=== PATIENT | female | born 1950 | race Caucasian/White ===

== ENCOUNTER 2018-09-07 13:49 | Emergency (ER) | payer MEDICARE, OTHER ==
[~2018-09-07] VITALS: Ht 154.9 cm; Wt 45.4 kg
[~2018-09-07 13:49] MED LIST: ALENDRONATE SOD10 MG PO; DIPHENHIST50 MG PO; ESTRADIOL 1 MG T1 M1 PO; HALOG30 GM TP; PEPCID40 MG PO; PREDNISONE 20 M20 M1 PO; PREDNISONE50 MG PO
[2018-09-07] MEDS ORDERED: ALENDRONATE SOD70 MG PO (14:07)
[2018-09-07] MEDS ORDERED: ZYRTEC10 M5 PO (14:08)
[2018-09-07 14:24] LABS: ABSOLUTE BASOPHILS 0.1 thou/uL (0.0-0.2); ABSOLUTE EOSINOPHILS 0.1 thou/uL (0.0-0.7); ABSOLUTE LYMPHOCYTES 2.5 thou/uL (0.8-5.3); ABSOLUTE MONOCYTES 0.7 thou/uL (0.0-1.2); ABSOLUTE NEUTROPHILS 6.9 thou/uL (1.6-8.1); BASOPHILS 0.5 %; EOSINOPHILS 0.7 %; HEMATOCRIT 45.2 % (37.0-47.0); HEMOGLOBIN 14.8 gm/dL (12.0-15.0); LYMPHOCYTES 24.9 %; MCH 31.3 pg (26.0-34.0); MCHC 32.6 g/dL (28.0-37.0); MCV 95.9 fL (80.0-100.0); MONOCYTES 6.5 %; MPV 7.3 fl. (7.2-11.1); NUCLEATED RBCS 0 /100WBC; PLATELET COUNT* 328 thou/uL (150-400); POLYS 67.4 %; RBC 4.72 mil/uL (4.20-5.00); RDW-CV 13.7 % (10.5-14.5); WBC 10.2 thou/uL (4.0-11.0)
[2018-09-07 14:31] LABS: ANION GAP 13 mmol/L (7-16); BUN 13 mg/dL (7-18); CALCIUM 9.8 mg/dL (8.5-10.1); CHLORIDE 103 mmol/L (98-107); CO2 25 mmol/L (21-32); CREATININE 0.9 mg/dL (0.6-1.3); GLUCOSE 96 mg/dL (70-99); POTASSIUM 3.9 mmol/L (3.5-5.1); SODIUM 141 mmol/L (136-145)
[2018-09-07 14:41] LABS: ALBUMIN 4.3 g/dL (3.4-5.0); ALKALINE PHOSPHATASE 68 U/L (46-116); SGOT 22 U/L (15-37); SGPT 21 U/L (30-65); TOTAL BILIRUBIN 0.8 mg/dL (<0.1-1.0); TROPONIN-I LEVEL <0.06 ng/mL (<0.06)
[2018-09-07 15:18] VITALS: BP 113/62
--- NOTE | 2018-09-07 17:35 | EKG ---
[place] [address] ELECTROCARDIOGRAM REPORT Name: REMY BEAN Room: [facility]#: [id number] Admission: 09/07/18 Attend Phys: Discharge: 09/07/18 Date of : 46 Report #: [id number] THIS REPORT FOR: //name// [facility] ED Test Date: 2018-09-07 Test Time: 13:57:29 Pat Name: REMY SHANKSMENDOZAANNIE Department: Room: Gender: F Progressive Care Unit Registered Nurse: Amrit KUMARI : 1950 Requested By: Matthew Umaña Order Number: [id number] MD: Cristi Pastor Measurements Intervals Elizabeth Rate: 62 P: 72 DC: 154 QRS: 89 QRSD: 98 T: 14 QT: 397 QTc: 404 Interpretive Statements Sinus rhythm No previous ECG available for comparison Electronically Signed On 09-07-2018 17:35:09 MANAGER HAIR by Cristi Pastor [email or web address] <ELECTRONICALLY SIGNED> By: Cristi Pastor MD, [facility] 09/07/18 1735 1357 1357 Cristi Pastor MD, FACC /EPI
== END 2018-09-07 15:18 | disposition home or self-care (01) ==
LOC: M.ERS 13:49
PROVIDERS: Emergency Medicine Emergency Medical Services
DX: R11.2 Nausea with vomiting, unspecified (principal); R19.7 Diarrhea, unspecified; R42 Dizziness and giddiness; R55 Syncope and collapse; Z88.0 Allergy status to penicillin

== ENCOUNTER 2018-09-24 08:24 | Inpatient (IN) | payer MEDICARE, OTHER ==
[~2018-09-24] VITALS: Ht 154.9 cm; Wt 47.6 kg
[~2018-09-24 08:24] MED LIST changes: +ALENDRONATE SOD70 MG PO; +ZYRTEC10 M5 PO
[2018-09-24 08:26] VITALS: BP 184/90
[2018-09-24] MEDS ORDERED: FOSAMAX 70 MG T70 MG PO (08:28)
[2018-09-24 08:40] LABS: HEMATOCRIT 45.4 % (37.0-47.0); HEMOGLOBIN 14.9 gm/dL (12.0-15.0); MCH 31.6 pg (26.0-34.0); MCHC 32.9 g/dL (28.0-37.0); MPV 7.5 fl. (7.2-11.1); RBC 4.73 mil/uL (4.20-5.00); RDW-CV 13.7 % (10.5-14.5); WBC 7.1 thou/uL (4.0-11.0)
[2018-09-24 08:43] LABS: POC CA IONIZED 4.7 mg/dL (4.5-5.3); POC POTASSIUM 4.4 mmol/L (3.5-4.9)
[2018-09-24 08:50] LABS: CALCIUM 9.2 mg/dL (8.5-10.1); CREATININE 0.9 mg/dL (0.6-1.3); POTASSIUM 4.4 mmol/L (3.5-5.1)
[2018-09-24 08:52] LABS: APTT 24.9 Seconds (25.0-31.3)
[2018-09-24 09:00] LABS: ALBUMIN 4.1 g/dL (3.4-5.0); TOTAL BILIRUBIN 0.3 mg/dL (<0.1-1.0); TOTAL PROTEIN 7.7 g/dL (6.4-8.2)
[2018-09-24 09:44] LABS: NT-PRO BRAIN NAT PEPTIDE 305 pg/mL (<300); TROPONIN-I LEVEL <0.06 ng/mL (<0.06)
[2018-09-24 10:10] LABS: URINE BILIRUBIN NEGATIVE (Negative); URINE BLOOD TRACE (Negative); URINE CLARITY CLEAR; URINE COLOR YELLOW; URINE GLUCOSE-RANDOM NEGATIVE (Negative); URINE KETONES NEGATIVE (Negative); URINE LEUKOCYTES TRACE (Negative); URINE NITRITE NEGATIVE (Negative); URINE PROTEIN NEGATIVE (Negative); URINE SPECIFIC GRAVITY <= 1.005 (1.005-1.030); URINE UROBILINOGEN 0.2 E.U./dl (0.2-1.0)
[2018-09-24 10:22] LABS: BACTERIA 1-9 Few /HPF (None Seen); CASTS None Seen /LPF (None Seen); CRYSTALS None Seen /LPF (None Seen); MUCUS 0-3 Light strn/LPF (None Seen); SQUAMOUS 0-3 Few /LPF (0-3); URINE RBC 0-2 Rare /HPF (0-2); URINE WBC 0-5 Rare /HPF (0-5)
[2018-09-24 11:04] VITALS: BP 134/65
[2018-09-24 11:24] VITALS: BP 155/74
[2018-09-24] MEDS ORDERED: TENORMIN50 MG PO (11:54)
[2018-09-24 15:13] LABS: CHOLESTEROL 203 mg/dL (<200); HDL CHOLESTEROL 62 mg/dL (>40); LDL CHOLESTEROL 108 mg/dL (<100); SERUM ASSESSMENT Clear; TC:HDL 3.3 Ratio (Not establshd); TRIGLYCERIDE 165 mg/dL (<150); VLDL 33 mg/dL (<40)
[2018-09-24 19:00] VITALS: BP 133/52
[2018-09-25] VITALS (7 sets, daily range): BP systolic 114–138; BP diastolic 50–70
[2018-09-25] MEDS ORDERED: ASPIRIN325 PO (10:15)
[2018-09-25] MEDS ORDERED: ATORVASTATIN CA40 MG PO (10:16)
--- NOTE | 2018-09-25 10:16 | EKG ---
[place] [address] ELECTROCARDIOGRAM REPORT Name: REMY BEAN Room: [address] ADM IN .R.#: [id number] Admission: 09/24/18 Attend Phys: Skyler Cohen Discharge: Date of : 46 Report #: [id number] THIS REPORT FOR: //name// [facility] ED Test Date: 2018-09-24 Test Time: 08:51:41 Pat Name: REMY BEAN Department: Room: [facility] Gender: F Blue Split Trimmer: Amrit KUMARI : 1950 Requested By: Harvey Phelps Order Number: [id number] MD: Vinicius Johns Measurements Intervals [place] Rate: 53 P: 72 UT: 153 QRS: 89 QRSD: 98 T: 49 QT: 411 QTc: 386 Interpretive Statements Sinus bradycardia Consider right ventricular hypertrophy ST elevation, consider early repolarization Compared to ECG 09/07/2018 13:57:29 rate slowed Electronically Signed On 09-25-2018 10:16:20 PIPE CHIPPER by Vinicius Johns [email or web address] <ELECTRONICALLY SIGNED> By: Vinicius Johns MD, [facility] 09/25/18 [phone] Vinicius Johns MD, [facility] /EPI
--- NOTE | 2018-09-25 15:04 | 2DMMODE ---
[place] [address] 2 D/M-MODE ECHOCARDIOGRAM Name: REMY BEAN Room: [address] IN .R.#: [id number] Admission: 09/24/18 Attend Phys: Janis Mills Discharge: Date of : 46 Date of Service: 09/25/18 1504 Report #: [id number] THIS REPORT FOR: //name// APPROVED REPORT Study performed: 09/25/2018 10:13:08 EXAM: Comprehensive 2D, Doppler, and color-flow Echocardiogram Patient Location: Bedside BSA: 1.41 HR: 64 bpm BP: 117/50 mmHg Other Information Study Quality: Technically Limited Indications CVA/TIA Echo Enhancing Agent Indication: Rule out Shunt Agent(s) / Amount(s) Used: Agitated Saline cc 2D Dimensions IVSd: 8.49 (7-11mm) LVOT Diam: 17.41 (18-24mm) LVDd: 32.65 mm PWd: 9.92 (7-11mm) Ascending Ao: 23.45 (22-36mm) LVDs: 25.54 (25-40mm) Aortic Root: 20.99 mm Volumes Left Atrial Volume (Systole) LA ESV Index: 23.80 mL/m2 Aortic Valve AoV Peak Amado.: 1.15 m/s AO Peak Gr.: 5.28 mmHg LVOT Max P.57 mmHg AO Mean Gr.: 3.11 mmHg LVOT Mean P.20 mmHg LVOT Max V: 0.80 m/s AO V2 VTI: 24.42 cm LVOT Mean V: 0.50 m/s TAWNYA (VTI): 1.71 cm2 LVOT V1 VTI: 17.56 cm Mitral Valve E/A Ratio: 1.15 [place] [address] 2 D/M-MODE ECHOCARDIOGRAM Name: REMY BEAN Room: [address] IN .R.#: [id number] Admission: 09/24/18 Attend Phys: Janis Mills Discharge: Date of : 46 Date of Service: 09/25/18 1504 Report #: [id number] MV Decel. Time: 184.40 ms MV E Max Amado.: 0.78 m/s MV PHT: 53.48 ms MVA (PHT): 4.11 cm2 TDI E/Lateral E': 7.80 E/Medial E': 7.80 Medial E' Amado.: 0.10 m/s Lateral E' Amado.: 0.10 m/s Pulmonary Valve PV Peak Amado.: 1.01 m/s PV Peak Gr.: 4.06 mmHg Tricuspid Valve RAP Estimate: 5.00 mmHg TR Peak Gr.: 27.88 mmHg RVSP: 32.88 mmHg PA Pressure: 32.88 mmHg Left Ventricle The left ventricle is normal size. There is normal LV segmental wall motion. There is normal left ventricular wall thickness. Left ventricular systolic function is normal. The left ventricular ejection fraction is within the normal range. LVEF is 60-65%. The left ventricular diastolic function is normal. Right Ventricle The right ventricle is normal size. The right ventricular systolic function is normal. Atria The left atrium size is normal. Injection of bubbles documented no interatrial shunt. The right atrium size is normal. Aortic Valve The aortic valve is normal in structure. No aortic regurgitation is present. There is no aortic valvular stenosis. Mitral Valve The mitral valve is normal in structure. There is no mitral valve regurgitation noted. No evidence of mitral valve stenosis. Tricuspid Valve The tricuspid valve is normal in structure. Trace tricuspid regurgitation[place] [address] 2 D/M-MODE ECHOCARDIOGRAM Name: VIKASREMY Skyler Room: [address] IN ..#: [id number] Admission: 09/24/18 Attend Phys: Janis Mills Discharge: Date of : 46 Date of Service: 09/25/18 1504 Report #: [id number] Pulmonic valve is not well visualized. There is no pulmonic valvular regurgitation. Great Vessels The aortic root is normal in size. IVC is normal in size and collapses >50% with inspiration. Pericardium There is no pericardial effusion. <Conclusion> LVEF is 60-65%. Injection of bubbles documented no interatrial shunt. <ELECTRONICALLY SIGNED> By: Vinicius Johns MD, FACC 09/25/18 1504 1504 1504 Vinicius Johns MD, FACC /INF
[2018-09-26] VITALS: BP 132/61
[2018-09-26 04:00] VITALS: BP 118/57
[2018-09-26 08:00] VITALS: BP 113/55
[2018-09-26 09:10] LABS: GLYCOHEMOGLOBIN (HGB A1C) 5.6 % (4.8-5.6)
[2018-09-26 12:00] VITALS: BP 120/56
[2018-09-26 16:38] VITALS: BP 117/57
--- NOTE | 2018-09-26 17:36 | CON ---
[address] [address] CONSULTATION Name: REMY BEAN Room: [address] IN .R.#: [id number] Admission: 09/24/18 Attend Phys: Skyler Cohen Discharge: Date of : 46 Report #: [id number] THIS REPORT FOR: //name// CC: Julian Salazar INDICATION: CVA and surgical clearance. HISTORY OF PRESENT ILLNESS: The patient is a very pleasant 68-year-old white female with no prior cardiac history. She was admitted to the hospital with symptoms of right-sided CVA. CTA of the head and neck shows evidence of small thrombus in the right common carotid artery. The patient is tentatively scheduled for surgery tomorrow. Her symptoms have resolved. She denies any chest pain, tightness or pressure. There is no prior cardiac history. She denies any significant orthopnea or paroxysmal nocturnal dyspnea. Cardiac risk factors include tobacco use, hypertension and possible dyslipidemia. FAMILY HISTORY: Noncontributory. SOCIAL HISTORY: The patient smokes a pack and half cigarettes every week. She drinks alcohol occasionally. PAST MEDICAL HISTORY: 1. Osteoporosis. 2. Hypertension. 3. Hormone replacement therapy. 4. Tobacco use. PAST SURGICAL HISTORY: Partial hysterectomy and rotator cuff repair. PHYSICAL EXAMINATION: VITAL SIGNS: Stable. Blood pressure 120/56, pulse 65 and regular. GENERAL: This is a pleasant, thin female in no distress. Mood and affect appropriate. HEENT: The patient is wearing glasses. Extraocular muscles intact. Mucous membranes moist. NECK: Shows no jugular venous distention. CHEST: Reveals clear lung ramos without wheezes or rales. CARDIOVASCULAR: Reveals a regular rhythm, normal S1, S2. I do not appreciate gallop or murmur. ABDOMEN: Reveals normal bowel sounds. Abdomen is soft and nontender. EXTREMITIES: Shows no edema. Peripheral pulses 2+ and easily palpable. A 12-lead EKG shows sinus bradycardia without [place] [address] CONSULTATION Name: REMY BEAN Room: [address] IN [facility].#: [id number] Admission: 09/24/18 Attend Phys: Skyler Cohen Discharge: Date of : 46 Report #: [id number] abnormality. There are no pathologic Q-waves. All intervals are normal. LABORATORY DATA: Reviewed. Electrolytes within normal limits. Renal function is normal. Troponins less than 0.06. Total cholesterol 203, triglycerides 165, HDL 62, LDL 108. IMPRESSION AND RECOMMENDATIONS: 1. Symptoms to suggest cerebrovascular accident. The patient has right common carotid thrombus. There is no cardiac contraindication for proceeding with carotid endarterectomy at this time. 2. Borderline hyperlipidemia. I would recommend low dose statin agent at discharge. 3. Hypertension, adequately controlled on atenolol. 4. Tobacco use, smoking cessation discussed and advised. <ELECTRONICALLY SIGNED> By: Cristi Pastor MD, FACC 09/26/18 1736 1320 1348Michael Georgina Pastor MD, FACC /nt
[2018-09-26 20:00] VITALS: BP 136/70
[2018-09-27] VITALS (9 sets, daily range): BP systolic 97–149; BP diastolic 39–66
[2018-09-27 18:31] LABS: HEMATOCRIT 37.8 % (37.0-47.0); HEMOGLOBIN 12.4 gm/dL (12.0-15.0); MCH 31.5 pg (26.0-34.0); MCHC 32.9 g/dL (28.0-37.0); MCV 95.7 fL (80.0-100.0); MPV 7.8 fl. (7.2-11.1); RBC 3.95 mil/uL (4.20-5.00); RDW-CV 13.7 % (10.5-14.5); WBC 10.3 thou/uL (4.0-11.0)
[2018-09-27 18:35] LABS: POTASSIUM 3.8 mmol/L (3.5-5.1)
[2018-09-28] VITALS: BP 108/47
[2018-09-28 01:00] VITALS: BP 102/50
[2018-09-28 02:00] VITALS: BP 108/61
[2018-09-28 04:00] VITALS: BP 100/47
[2018-09-28 06:00] VITALS: BP 123/71
[2018-09-28] MEDS ORDERED: ASPIRIN325 PO (07:51)
[2018-09-28] MEDS ORDERED: ASPIR 8181 M1 PO (11:08)
[2018-09-28] MEDS ORDERED: NORCO 5-325 TA1 EACH PO (11:10)
[2018-09-28] MEDS ORDERED: ATORVASTATIN CA40 MG PO (11:12)
[2018-09-28 11:13] VITALS: BP 117/50
--- NOTE | 2018-09-29 10:58 | CON ---
[address] [address] CONSULTATION Name: REMY BEAN Room: [address] IN M.R.#: [id number] Admission: 09/24/18 Attend Phys: Skyler Cohen Discharge: 09/28/18 Date of : 46 Report #: [id number] THIS REPORT FOR: //name// CC: Julian Mills DATE OF SERVICE: 09/24/2018 HISTORY OF PRESENT ILLNESS: This is a 68-year-old female patient who was evaluated by me for TIA. The patient was discussed with the Emergency Room physician. The patient herself provided history. She noticed weakness on the left side of the body when she got up this morning. She also had some speech difficulty. Some slurring of the speech was associated with that. Weakness was moderately severe. Symptoms came spontaneously, then resolved spontaneously. In the Emergency Room, her symptoms completely resolved. She underwent a CTA of the head and neck, which demonstrated the possibility of dissection. It appeared to be small. As I understand from the Emergency Room, they contacted the stroke team and they mainly recommended aspirin therapy. REVIEW OF SYSTEMS: Indicate that the patient does have a history of hypertension. She takes medication for that. When she came in, her blood pressure was high at 184/90. She is not a known diabetic. She did have some stomach problems 2 weeks ago, but it was overnight nausea and vomiting. She denies any new eye, ENT, cardiac, respiratory, GI, , musculoskeletal, constitutional, dermatological, hematological, psychiatric, throat, allergic symptom associated with present symptomatology. PAST MEDICAL HISTORY: Negative for any TIA or migraine headache. FAMILY HISTORY: Negative for any early age stroke. SOCIAL HISTORY: She smokes. PHYSICAL EXAMINATION: Indicate she is an alert and responsive. She has no speech difficulty. Her speech, concentration, fund of knowledge and memory is at her baseline. She is oriented. Cranial nerve examination 2-12 looks unremarkable. She has symmetrical strength, sensation, reflexes and tones in all 4 extremities. There is no papilledema. There is no carotid bruit. There is no meningeal sign. Pulses are difficult to feel, but she has no edema, cyanosis or jaundice. Cardiac examination shows no atrial fibrillation and was mostly unremarkable. No respiratory difficulty or rhonchi was noticed. She is moderately built individual who does not have any dysmorphic features of eyes, ears and face. Her blood pressure is 155/74, respirations 16, pulse is 58, temperature is 97.8. LABORATORY DATA: Indicate a normal white count at 7.1. [place] [address] CONSULTATION Name: REMY BEAN Room: [address] IN M.R.#: [id number] Admission: 09/24/18 Attend Phys: Skyler Cohen Discharge: 09/28/18 Date of : 46 Report #: [id number] significant dyslipidemia with cholesterol of 203 and LDL of 108. Her imaging studies were reviewed. The CT angio is as described above. MRI does show a small infarct which would correlate with the patient's symptoms. Carotid Doppler actually shows more block on the left side than the right side. IMPRESSION: 1. Small cerebrovascular accident on MRI with the symptoms so far have resolved. 2. Smoking is the biggest risk factor. 3. Dyslipidemia is another risk factor in her. RECOMMENDATIONS: 1. Monitor for any atrial fibrillation. 2. Aspirin. 3. She must stop smoking. 4. Statin. 5. Thirty days event monitor as an outpatient. 6. Await echocardiogram to see if there is any patent foramen ovale. Dr. Beckett will follow up this patient from tomorrow and we can see this patient back for a followup in about 1 week after she is dismissed and do rest of the workup as an outpatient. All of it was discussed with the patient and the patient is agreeable with this plan. <ELECTRONICALLY SIGNED> By: Alfred Madison MD 09/29/18 1058 1600 [id number] Madison MD /nt
--- NOTE | 2018-09-29 14:54 | OP ---
[address] [address] OPERATIVE REPORT Name: REMY BEAN Room: [address] IN ..#: [id number] Admission: 09/24/18 Attend Phys: Skyler Cohen Discharge: 09/28/18 Date of : 46 Report #: [id number] THIS REPORT FOR: //name// CC: Julian Mills DATE OF SERVICE: 09/27/2018 PREOPERATIVE DIAGNOSIS: Symptomatic right carotid artery stenosis. POSTOPERATIVE DIAGNOSIS: Symptomatic right carotid artery stenosis. OPERATION: 1. Right carotid endarterectomy with bovine pericardial patch angioplasty. 2. Completion intraoperative duplex. SURGEON: Rajeev Gentile DO. RIDDLER OPERATOR: MARISELA Cruz. ANESTHESIA: General. ESTIMATED BLOOD LOSS: 150 mL. FLUIDS: 1100 crystalloid. URINE OUTPUT: None. SPECIMENS: Right carotid plaque. IMPLANTS: A 0.8 x 8 bovine pericardial patch in the right carotid artery. FINDINGS: She has an ulcerated common carotid artery plaque that appeared to have ruptured. This endarterectomized well and tailored to good distal endpoint on the internal carotid artery. Completion intraoperative duplex demonstrated no intraluminal defects, a good continuous diastolic flow through the internal carotid artery and flow in the external carotid artery. CLINICAL HISTORY: The patient is a 68-year-old woman presented with a transient ischemic attack with a left upper extremity weakness, facial drooping and dysarthria. This resolved within about a half hour to hour. Imaging during hospital admission demonstrated a right carotid artery plaque that appeared to have ruptured with a thrombus present. She was initiated on heparin drip and then brought to the OR for endarterectomy. DESCRIPTION OF PROCEDURE: After informed consent was obtained, the patient was [facility] [address] [place] [address] OPERATIVE REPORT Name: REMY BEAN Room: [address] IN [facility].#: [id number] Admission: 09/24/18 Attend Phys: Skyler Cohen Discharge: 09/28/18 Date of : 46 Report #: [id number] taken to the operating room and placed on the OR bed in supine position. She was administered general anesthesia by the anesthesia team. Right neck was prepped and draped in usual sterile fashion. Full timeout was performed identifying correct patient and procedure. Next, a longitudinal incision made along the anterior border of sternocleidomastoid. Dissection was carried down through skin and subcutaneous tissue both sharply with electrocautery. Platysma was divided. The carotid sheath was entered. Facial vein was identified, was ligated between 2-0 silk ties and divided. I then circumferentially dissected out the common carotid artery and controlled this with umbilical tape and Rumel tourniquet. I then dissected out the external carotid artery and superior thyroid artery and controlled this with a Silastic vessel loop in Rosario fashion. I then dissected out the distal internal carotid artery and controlled with Silastic vessel loop as well. I administered 5000 units of intravenous heparin. She has been on therapeutic heparin drip preoperatively and this was stopped in the preop area. Then, after 3 minutes, sequentially clamped the internal followed by the common external carotid artery, I made a longitudinal arteriotomy extended with Rosario scissors in the normal common carotid artery and internal carotid artery. I then placed a 12-[place] shunt in standard fashion. Doppler interrogation confirmed flow through the shunt and then performed a standard endarterectomy with eversion endarterectomy of the external carotid artery, tailored to good distal endpoint in the distal internal carotid artery. I then performed patch angioplasty with bovine pericardial patch with running 6-0 Prolene suture. Prior to completion of the suture line, the shunt was removed. The arteries were sequentially reclamped and the arteries were allowed to fore and backbleed. It was flushed with heparinized saline. I completed the patch, restored flow first up the external carotid artery and after several heartbeats to the internal carotid artery. I then performed completion intraoperative duplex demonstrated no intraluminal defects, good flow through the external, continuous diastolic flow through the internal carotid artery. At this point, the partially reversed the heparin with 50 mg protamine. Once hemostasis was assured, the wound was irrigated with antibiotic solution and closed in layers with 2-0 and 3-0 Vicryl, 4-0 Monocryl on the skin. Dermabond was applied. Skin and subcutaneous tissues were anesthetized with Marcaine anesthetic. All sponge, sharp and instrument counts reported correct x 2. She was extubated in the operating room, neurologically intact, moving upper and lower extremities appropriately to command. <ELECTRONICALLY SIGNED> By: Andre Cruz DO 09/29/18 1454 1703 1738Alakshmi Gentile DO /nt
--- NOTE | 2018-09-29 16:07 | PATH ---
[address] [address] PATHOLOGY RPT PROCEDURE Name: REMY ESTEBAN Room: [address] IN .R.#: [id number] Admission: 09/24/18 Date of : 46 Discharge: 09/28/18 Report #: [id number] Path Case #: [id number] [facility] Accession Number: [id number] . 01 Material submitted: . PLAQUE RIGHT CAROTID . 01 Clinical history: . Symptomatic right carotid stenosis. . 02 Diagnosis: Plaque right carotid: - Fibrointimal atherosclerotic plaque with calcification. . (FAITH:mmnarinder; 09/29/18) QL/09/29/2018 . 02 Electronically signed: . Raz Nunes MD, Pathologist NPI- [id number] . 01 Gross description: . Received in formalin labeled "Remy Esteban, plaque right carotid" is a 3.6 x 2.4 x 0.6 cm aggregate of aguirre-yellow rubbery soft tissue fragments. The specimen is sectioned to reveal focal areas of calcification comprising 5% of the specimen. Bag Grader sections are submitted in cassette A1. ([facility]; 09/28/2018) SYC/SYC . 02 Pathologist provided ICD-10: I65.21 . 02 CPT . 865999, 481041 Specimen Comment: A courtesy copy of this report has been sent to Specimen Comment: [phone], , . Specimen Comment: Report sent to ,DR LOCKETT / DR SCHMIDT Performed at: [address], [place] [id number] MD Terry Ruiz MD Phone: [phone] Performed at: 02 [facility] [address], [place], [place] [id number] MD Raz Nunes MD Phone: [phone]
== END 2018-09-28 11:55 | disposition home or self-care (01) | DRG 38 ==
LOC: M.ERS 08:24 → M.TBA-ER 10:16 → M.2W 10:16 → M.ICU 09-27 18:05
PROVIDERS: Emergency Medicine; Surgery; ADMIT Internal Medicine
PROC: 4A133B1 Monitoring of Arterial Pressure, Peripheral, Percutaneous Approach (ICD-10-PCS; principal; 2018-09-27)
PROC: 03UH0KZ Supplement Right Common Carotid Artery with Nonautologous Tissue Substitute, Open Approach (ICD-10-PCS; principal; 2018-09-27)
PROC: 03HY32Z Insertion of Monitoring Device into Upper Artery, Percutaneous Approach (ICD-10-PCS; principal; 2018-09-27)
PROC: 4A133J1 Monitoring of Arterial Pulse, Peripheral, Percutaneous Approach (ICD-10-PCS; principal; 2018-09-27)
PROC: 03CH0ZZ Extirpation of Matter from Right Common Carotid Artery, Open Approach (ICD-10-PCS; principal; 2018-09-27)
DX: I63.031 Cerebral infarction due to thrombosis of right carotid artery (principal); D68.59 Other primary thrombophilia; I16.0 Hypertensive urgency; F17.210 Nicotine dependence, cigarettes, uncomplicated; M81.0 Age-related osteoporosis without current pathological fracture; I10 Essential (primary) hypertension; Z88.0 Allergy status to penicillin; Z88.8 Allergy status to other drugs, medicaments and biological substances; Z90.711 Acquired absence of uterus with remaining cervical stump; Z71.9 Counseling, unspecified; Z82.3 Family history of stroke; Z79.82 Long term (current) use of aspirin; Z79.899 Other long term (current) drug therapy

== ENCOUNTER 2019-08-20 12:38 | Inpatient (IN) | payer OTHER ==
[~2019-08-20] VITALS: Ht 152.4 cm; Wt 43.7 kg
[~2019-08-20 12:38] MED LIST changes: +ASPIR 8181 M1 PO; +ASPIRIN325 PO; +ATORVASTATIN CA40 MG PO; +FOSAMAX 70 MG T70 MG PO; +LIPITOR40 MG PO; +NORCO 5-325 TA1 EACH PO; +TENORMIN50 MG PO
[2019-08-20 12:57] VITALS: BP 171/97
[2019-08-20] MEDS ORDERED: FLONASE 0.05%50 MCG NARES (13:12)
[2019-08-20] MEDS ORDERED: CARVEDILOL6.25 M1 PO (13:12)
[2019-08-20 13:51] LABS: ABSOLUTE BASOPHILS 0.1 thou/uL (0.0-0.2); ABSOLUTE EOSINOPHILS 0.2 thou/uL (0.0-0.7); ABSOLUTE LYMPHOCYTES 2.5 thou/uL (0.8-5.3); ABSOLUTE MONOCYTES 1.2 thou/uL (0.0-1.2); ABSOLUTE NEUTROPHILS 8.5 thou/uL (1.6-8.1); BASOPHILS 1.1 %; EOSINOPHILS 1.9 %; HEMATOCRIT 36.1 % (37.0-47.0); HEMOGLOBIN 11.9 gm/dL (12.0-15.0); LYMPHOCYTES 19.8 %; MCH 28.7 pg (26.0-34.0); MONOCYTES 9.8 %; MPV 7.3 fl. (7.2-11.1); NUCLEATED RBCS 0 /100WBC; PLATELET COUNT* 384 thou/uL (150-400); POLYS 67.4 %; RBC 4.15 mil/uL (4.20-5.00); RDW-CV 16.3 % (10.5-14.5); WBC 12.5 thou/uL (4.0-11.0)
[2019-08-20 13:59] LABS: URINE BILIRUBIN NEGATIVE (Negative); URINE BLOOD TRACE (Negative); URINE COLOR YELLOW; URINE GLUCOSE-RANDOM NEGATIVE (Negative); URINE KETONES NEGATIVE (Negative); URINE LEUKOCYTES-REFLEX TRACE (Negative); URINE NITRITE-REFLEX NEGATIVE (Negative); URINE PROTEIN NEGATIVE (Negative); URINE UROBILINOGEN 0.2 E.U./dl (0.2-1.0)
[2019-08-20 13:59] LABS: CALCIUM 9.6 mg/dL (8.5-10.1); CREATININE 0.9 mg/dL (0.6-1.3); POTASSIUM 4.4 mmol/L (3.5-5.1)
[2019-08-20 14:01] LABS: URINE CLARITY HAZY
[2019-08-20 14:03] LABS: APTT 25.2 Seconds (25.0-31.3); PROTIME 10.6 Seconds (9.20-11.50)
[2019-08-20 14:04] LABS: ALBUMIN 3.8 g/dL (3.4-5.0); TOTAL BILIRUBIN 0.6 mg/dL (<0.1-1.0); TOTAL PROTEIN 7.5 g/dL (6.4-8.2)
[2019-08-20 14:08] LABS: BACTERIA-REFLEX None Seen /HPF (None Seen); CASTS None Seen /LPF (None Seen); CRYSTALS None Seen /LPF (None Seen); SQUAMOUS 0-3 Few /LPF (0-3); URINE RBC None Seen /HPF (0-2); URINE WBC-REFLEX None Seen /HPF (0-5)
[2019-08-20 19:33] VITALS: BP 166/76
[2019-08-20 20:00] VITALS: BP 158/55
[2019-08-21 04:24] LABS: HEMATOCRIT 32.1 % (37.0-47.0); HEMOGLOBIN 10.6 gm/dL (12.0-15.0); MCHC 33.2 g/dL (28.0-37.0); MCV 87.5 fL (80.0-100.0); MPV 7.5 fl. (7.2-11.1); RBC 3.67 mil/uL (4.20-5.00); RDW-CV 15.8 % (10.5-14.5); WBC 7.5 thou/uL (4.0-11.0)
[2019-08-21 04:33] LABS: ALBUMIN 2.8 g/dL (3.4-5.0); CALCIUM 8.5 mg/dL (8.5-10.1); CREATININE 0.8 mg/dL (0.6-1.3); MAGNESIUM 1.8 mg/dL (1.8-2.4); POTASSIUM 4.7 mmol/L (3.5-5.1); TOTAL BILIRUBIN 0.3 mg/dL (<0.1-1.0); TOTAL PROTEIN 5.9 g/dL (6.4-8.2)
[2019-08-21 08:05] VITALS: BP 107/46
[2019-08-21 16:00] VITALS: BP 97/37
[2019-08-21 20:00] VITALS: BP 125/44
[2019-08-22 04:58] LABS: ABSOLUTE BASOPHILS 0.1 thou/uL (0.0-0.2); ABSOLUTE EOSINOPHILS 0.3 thou/uL (0.0-0.7); ABSOLUTE LYMPHOCYTES 2.1 thou/uL (0.8-5.3); ABSOLUTE MONOCYTES 0.8 thou/uL (0.0-1.2); ABSOLUTE NEUTROPHILS 4.2 thou/uL (1.6-8.1); BASOPHILS 0.9 %; EOSINOPHILS 3.9 %; HEMATOCRIT 32.1 % (37.0-47.0); HEMOGLOBIN 10.6 gm/dL (12.0-15.0); MCV 87.7 fL (80.0-100.0); MONOCYTES 10.7 %; MPV 7.5 fl. (7.2-11.1); NUCLEATED RBCS 0 /100WBC; PLATELET COUNT* 335 thou/uL (150-400); POLYS 56.5 %; RBC 3.66 mil/uL (4.20-5.00); RDW-CV 16.1 % (10.5-14.5); WBC 7.4 thou/uL (4.0-11.0)
[2019-08-22 05:24] LABS: CALCIUM 8.5 mg/dL (8.5-10.1); POTASSIUM 4.3 mmol/L (3.5-5.1)
[2019-08-22 06:34] LABS: ESR (SEDRATE) 12 mm/hr (0-30)
[2019-08-22 08:05] VITALS: BP 116/56
[2019-08-22] MEDS ORDERED: CIPRO250 M2 PO (09:23)
[2019-08-22] MEDS ORDERED: FLAGYL500 M1 PO (09:23)
[2019-08-22] MEDS ORDERED: FLORINEF ACETA0.1 MG PO (09:23)
[2019-08-22] MEDS ORDERED: FLORANEX TABLE1 EACH PO (09:24)
[2019-08-22 09:36] VITALS: BP 116/56
[2019-08-22] MEDS ORDERED: MIRALAX119 GM PO (09:42)
--- NOTE | 2019-08-25 13:09 | CON ---
[address] [address] CONSULTATION Name: REMY BEAN Room: [address] IN M.R.#: [id number] Admission: 08/20/19 Attend Phys: Kori Fowler MD Discharge: 08/22/19 Date of : 46 Report #: [id number] THIS REPORT FOR: //name// CC: JOLLY Fowler DICTATED BY: Isabella Brantley [facility] DATE OF SERVICE: 08/21/2019 Please note at the time of this dictation, the patient was seen and physically examined by myself. REASON FOR CONSULTATION: Rectal bleeding. HISTORY OF PRESENT ILLNESS: The patient presented to the Emergency Room with increased mucus and some bright red blood that she has noted in her stool and with wiping over the last 4 days. The patient states that it was small amounts of blood, but a lot of mucus that she has noted mixed with her bowel movement. Prior to this episode, she states that she did have some very round pellets which is not like her normally, she has a soft formed stool on a daily basis; however, she did prior to this episode have very small pellets with some constipation associated with it. The patient recently received a letter from Dr. Marmolejo stating she is due for her colonoscopy with her past history of colon polyps. In talking with the patient, she would prefer to wait on any endoscopy studies and have them done with him since she is due to have that done at this time. Otherwise, she denies any abdominal pain, no nausea or vomiting at this time. She does not routinely take anything for her bowels. ALLERGIES: RED MEAT, PENICILLIN. MEDICATIONS: From home, carvedilol, Flonase, esterase, Fosamax, aspirin, Lipitor. PAST MEDICAL HISTORY: Hypertension, osteoporosis, had a CVA in 09/2018. PAST SURGICAL HISTORY: Right carotid endarterectomy. FAMILY HISTORY: Negative for any GI or female cancers. SOCIAL HISTORY: Denies any tobacco or illegal drug use and alcohol on special occasions. REVIEW OF SYSTEMS: Twelve-point review of systems is essentially negative except what [place] [address] CONSULTATION Name: REMY BEAN Room: [address]#: [id number] Admission: 08/20/19 Attend Phys: Kori Fowler MD Discharge: 08/22/19 Date of : 46 Report #: [id number] PHYSICAL EXAMINATION: VITAL SIGNS: Temperature 36.7, pulse 72, respirations 17, blood pressure 158/55. HEART: Regular rate and rhythm. LUNGS: Clear. ABDOMEN: Soft, positive bowel sounds in all 4 quadrants with no masses or tenderness noted. LABORATORY DATA: Hemoglobin on admission was 11.9, she is 10.6; white count was a little elevated at 12.5, she is down to 7.5; platelets 343. GFR 71. PT is 10.6, INR is 1. CT showed bowel wall thickening with some adjacent fat stranding surrounding the rectum, sigmoid, and descending colon. IMPRESSION: 1. Rectal bleeding and mucus. 2. Abnormal CT, bowel wall thickening. 3. Constipation, recent episode. 4. History of colon polyps. PLAN: 1. Continue her antibiotics once she goes home. 2. Low-residue diet. 3. The patient wants to defer her colonoscopy at this time. She prefers to go back and see her GI doctor, Dr. Marmolejo because she is due for her 5-year recall at this time. Thank you for allowing us to participate in this patient's care. Please do not hesitate to call with any questions in regard to this consult. <ELECTRONICALLY SIGNED> By: Raymundo Feliciano DO 08/25/19 1309 1046 1216Raymundo Feliciano DO /nt
== END 2019-08-22 11:20 | disposition home or self-care (01) | DRG 371 ==
LOC: M.ERS 12:38 → M.3W 15:32 → M.TBA-ER 15:32 → M.3W 20:06
PROVIDERS: Internal Medicine Gastroenterology; Nurse Practitioner Family; ADMIT Internal Medicine
DX: A04.9 Bacterial intestinal infection, unspecified (principal); K57.31 Diverticulosis of large intestine without perforation or abscess with bleeding; M81.0 Age-related osteoporosis without current pathological fracture; I10 Essential (primary) hypertension; K59.00 Constipation, unspecified; F17.210 Nicotine dependence, cigarettes, uncomplicated; Z23 Encounter for immunization; Z86.73 Personal history of transient ischemic attack (TIA), and cerebral infarction without residual deficits; Z79.899 Other long term (current) drug therapy; Z79.82 Long term (current) use of aspirin; Z88.0 Allergy status to penicillin; Z91.018 Allergy to other foods; Z86.010 Personal history of colon polyps; Z82.3 Family history of stroke